=== PATIENT | female | born 1990 | race Caucasian/White ===

== ENCOUNTER 2019-12-24 01:29 | Emergency (ER) | payer BC ==
--- NOTE | 2019-12-24 02:04 | EDM.PDOC ---
ED HPI GENERAL MEDICAL PROBLEM - General Stated Complaint: SHARP SIDE PAIN Time Seen by Provider: 12/24/19 02:00 Source of Information: Reports: Patient History Limitations: Reports: No Limitations - History of Present Illness INITIAL COMMENTS - FREE TEXT/NARRATIVE: 29-year-old female who reports at approximately 11:30 PM to 12 midnight while at work she developed an acute onset of a sharp and ramping pain in her right mid back and then some cramping along her lower abdomen and pelvis that was associated with nausea but no vomiting. She reports the pain was a 6/10 at its worst but is a 3/10 now. It does seem to wax and wane somewhat. She has had no dysuria or noted any hematuria. The pain does seem to be somewhat worse when she is standing. Her no other exacerbating or alleviating factors. She has had no cough or trouble breathing. There were no antecedent problems. She has had no antecedent illnesses. There are no other associated signs or symptoms. There are no other modifying factors. Onset: Today (11:30 PM to 12 midnight), Sudden Duration: Improving Location: Reports: Abdomen, Back Quality: Reports: Sharp, Other (Cramping) Severity: Moderate Improves with: Reports: None Worsens with: Reports: Other (Standing) Context: Reports: Other (As above) Associated Symptoms: Reports: Nausea/Vomiting Treatments COMMUNICATIONS ADVISOR: Reports: Other (see below) (Nothing) back/ abdomen Pain Score (Numeric/FACES): 6 - Related Data Allergies Allergy/AdvReac Type Severity Reaction Status Date / Time albuterol Allergy Hives Verified 12/24/19 02:06 Home Meds: Home Meds Sulfamethoxazole/Trimethoprim [Bactrim Ds Tablet] 1 each PO BID 7 Days #14 tablet 12/24/19 [Rx] Past Medical History Genitourinary History: Reports: Renal Calculus - Past Surgical History HEENT Surgical History: Reports: Adenoidectomy, Tonsillectomy Social & Family History - Tobacco Use Smoking Status *Q: Current Every Day Smoker - Alcohol Use Alcohol Use History: No - Living Situation & Occupation Occupation: Employed (She works at [employer]) Social History Comment: She is here with her significant other. ED ROS GENERAL - Review of Systems Review Of Systems: See Below Constitutional: Reports: No Symptoms HEENT: Reports: No Symptoms Respiratory: Reports: No Symptoms Cardiovascular: Reports: No Symptoms GI/Abdominal: Reports: Abdominal Pain, Nausea : Reports: No Symptoms Musculoskeletal: Reports: Back Pain (Right mid back pain) Skin: Reports: No Symptoms Neurological: Reports: No Symptoms Hematologic/Lymphatic: Reports: No Symptoms Immunologic: Reports: No Symptoms ED EXAM, GENERAL - Physical Exam Exam: See Below Exam Limited By: No Limitations General Appearance: Alert, WD/WN, Mild Distress Eye Exam: Bilateral Eye: EOMI, Normal Inspection Ears: Normal External Exam, Hearing Grossly Normal Ear Exam: Bilateral Ear: Auricle Normal Nose: Normal Inspection, Normal Mucosa, No Blood. No: Other Throat/Mouth: Normal Inspection, Normal Oropharynx, Normal Voice, No Airway Compromise Head: Atraumatic, Normocephalic Neck: Normal Inspection, Supple, Non-Tender, Full Range of Motion Respiratory/Chest: No Respiratory Distress, Lungs Clear, Normal Breath Sounds, No Accessory Muscle Use, Chest Non-Tender Cardiovascular: Normal Peripheral Pulses, Regular Rate, Rhythm, No Murmur Peripheral Pulses: 2+: Radial (L), Radial (R) GI/Abdominal: Normal Bowel Sounds, Soft, Tender (Lower abdomen and pelvis with more the right than the left.) Back Exam: Full Range of Motion, CVA Tenderness (R) (Mild) Extremities: Normal Inspection, Normal Range of Motion, Non-Tender, Normal Capillary Refill. No: No Pedal Edema Neurological: Alert, Oriented, CN II-XII Intact, Normal Cognition, No Motor/ Sensory Deficits Skin Exam: Warm, Dry, Intact, Normal Color, No Rash Course - Vital Signs Last Recorded V/S: Last Vital Signs Temp 36.4 C 12/24/19 04:29 Pulse 77 12/24/19 04:29 Resp 14 12/24/19 04:29 BP 121/52 L 12/24/19 04:29 Pulse Ox 98 12/24/19 04:29 - Orders/Labs/Meds Orders: Active Orders 24 hr Category Date Time Status Abdomen Pelvis wo Cont [CT] Stat Exams 12/24/19 03:01 Taken CULTURE URINE [RM] Stat Lab 12/24/19 03:00 Ordered Sulfamethoxazole/Trimethoprim [Septra DS] Med 12/24/19 04:45 Once 1 tab PO ONETIME ONE Medication Orders Trimethoprim/Sulfamethoxazole (Septra Ds) 1 tab PO ONETIME ONE Stop: 12/24/19 04:46 Labs: Laboratory Tests 12/24/19 12/24/19 12/24/19 Range/Units 02:28 02:28 02:40 WBC 10.4 (4.5-12.0) X10-3/uL RBC 4.41 (3.23-5.20) x10(6)uL Hgb 14.2 (11.5-15.5) g/dL Hct 43.0 (30.0-51.3) % MCV 97.4 H (80-96) fL MCH 32.1 (27.7-33.6) pg MCHC 33.0 (32.2-35.4) g/dL RDW 11.9 (11.5-15.5) % Plt Count 326 (125-369) X10(3)uL MPV 8.1 (7.4-10.4) fL Neut % (Auto) 59.9 (46-82) % Lymph % (Auto) 31.8 (13-37) % Barron % (Auto) 4.1 (4-12) % Eos % (Auto) 3 (1.0-5.0) % Baso % (Auto) 1 (0-2) % Neut # (Auto) 6.2 (1.6-8.3) # Lymph # (Auto) 3.3 (0.6-5.0) # Barron # (Auto) 0.4 (0.0-1.3) # Eos # (Auto) 0.4 (0.0-0.8) # Baso # (Auto) 0.1 (0.0-0.2) # Sodium (135-145) mmol/L Potassium (3.5-5.3) mmol/L Chloride (100-110) mmol/L Carbon Dioxide (21-32) mmol/L BUN (7-18) mg/dL Creatinine (0.55-1.02) mg/dL Est Cr Clr Drug Dosing mL/min Estimated GFR (MDRD) (>60) BUN/Creatinine Ratio (9-20) Glucose (80-116) mg/dL Calcium (8.6-10.2) mg/dL Total Bilirubin (0.1-1.3) mg/dL AST (5-25) IU/L ALT (12-36) U/L Alkaline Phosphatase (56-112) IU/L Total Protein (6.0-8.0) g/dL Albumin (3.5-5.2) g/dL Globulin g/dL Albumin/Globulin Ratio Urine Color Brown (YELLOW) Urine Appearance Cloudy (CLEAR) Urine pH 5.0 (5.0-6.5) Ur Specific [place] 1.030 H (1.010-1.025) Urine Protein 100 H (NEGATIVE) mg/dL Urine Glucose (UA) Normal (NORMAL) mg/dL Urine Ketones 15 H (NEGATIVE) mg/dL Urine Occult Blood Large H (NEGATIVE) Urine Nitrite Positive H (NEGATIVE) Urine Bilirubin Small H (NEGATIVE) Urine Urobilinogen 1 H (NEGATIVE) mg/dL Ur Leukocyte Esterase Small H (NEGATIVE) Urine RBC >100 H (0-5) Urine WBC 5-10 H (0-5) Ur Squamous Epith Cells Moderate H (NS,R,O) Urine Bacteria Moderate H (NS) Urine Mucus Moderate H (NS) Urine HCG, Qual Negative (NEGATIVE) 12/24/19 Range/Units 02:40 WBC (4.5-12.0) X10-3/uL RBC (3.23-5.20) x10(6)uL Hgb (11.5-15.5) g/dL Hct (30.0-51.3) % MCV (80-96) fL MCH (27.7-33.6) pg MCHC (32.2-35.4) g/dL RDW (11.5-15.5) % Plt Count (125-369) X10(3)uL MPV (7.4-10.4) fL Neut % (Auto) (46-82) % Lymph % (Auto) (13-37) % Barron % (Auto) (4-12) % Eos % (Auto) (1.0-5.0) % Baso % (Auto) (0-2) % Neut # (Auto) (1.6-8.3) # Lymph # (Auto) (0.6-5.0) # Barron # (Auto) (0.0-1.3) # Eos # (Auto) (0.0-0.8) # Baso # (Auto) (0.0-0.2) # Sodium 143 (135-145) mmol/L Potassium 3.6 (3.5-5.3) mmol/L Chloride 104 (100-110) mmol/L Carbon Dioxide 28 (21-32) mmol/L BUN 18 (7-18) mg/dL Creatinine 0.8 (0.55-1.02) mg/dL Est Cr Clr Drug Dosing 100.90 mL/min Estimated GFR (MDRD) > 60 (>60) BUN/Creatinine Ratio 22.5 H (9-20) Glucose 86 (80-116) mg/dL Calcium 9.1 (8.6-10.2) mg/dL Total Bilirubin 0.6 (0.1-1.3) mg/dL AST 62 H (5-25) IU/L ALT 30 (12-36) U/L Alkaline Phosphatase 77 (56-112) IU/L Total Protein 8.0 (6.0-8.0) g/dL Albumin 4.4 (3.5-5.2) g/dL Globulin 3.6 g/dL Albumin/Globulin Ratio 1.2 Urine Color (YELLOW) Urine Appearance (CLEAR) Urine pH (5.0-6.5) Ur Specific [place] (1.010-1.025) Urine Protein (NEGATIVE) mg/dL Urine Glucose (UA) (NORMAL) mg/dL Urine Ketones (NEGATIVE) mg/dL Urine Occult Blood (NEGATIVE) Urine Nitrite (NEGATIVE) Urine Bilirubin (NEGATIVE) Urine Urobilinogen (NEGATIVE) mg/dL Ur Leukocyte Esterase (NEGATIVE) Urine RBC (0-5) Urine WBC (0-5) Ur Squamous Epith Cells (NS,R,O) Urine Bacteria (NS) Urine Mucus (NS) Urine HCG, Qual (NEGATIVE) Meds: Medications Generic Name Dose Route Start Last Admin Trade Name Freq PRN Reason Stop Dose Admin Trimethoprim/Sulfamethoxazole 1 tab 12/24/19 04:45 Septra Ds PO 12/24/19 04:46 ONETIME ONE - Radiology Interpretation Free Text/Narrative:: CT scan of abdomen and pelvis showed no evidence of obstructive uropathy or nephrolithiasis or ureterolithiasis. There is a small calcific density in the inferior bladder which could be a passed stone. - Re-Assessments/Exams Free Text/Narrative Re-Assessment/Exam: 12/24/19 04:45: Patient's pain in her right mid back and lower abdomen is essentially resolved. She feels much improved. She has remained vitally stable and fever in the emergency department. Her blood tests were reassuringly normal. Her urinalysis did have blood and some white cells with bacteria and a culture was sent. I suspect that she had a kidney stone the past and this is the cause of her abnormal urine but it is possible that she has a urinary tract infection and I am going to place her on Bactrim DS until culture comes back. I discussed this with the patient and with her significant other and they are in agreement with this plan. The patient is very much desirous of going home at this point. Departure - Departure Time of Disposition: 04:50 Disposition: Home, Self-Care 01 Condition: Good (Improved) Clinical Impression: Renal colic on right side Hematuria Qualifiers: Hematuria type: unspecified type Qualified Code(s): R31.9 - Hematuria, unspecified - Discharge Information Prescriptions: Sulfamethoxazole/Trimethoprim [Bactrim Ds Tablet] 1 each PO BID 7 Days #14 tablet Instructions: Renal Colic, [id number] Referrals: PCP,None [Primary Care Provider] - Additional Instructions: You appear to have had a kidney stone that you passed. You also could have a urinary tract infection. I am placing you on an antibiotic to treat for this possibility (Bactrim DS). You need to increase your fluid intake. You may take ibuprofen and Tylenol as needed for your pain. You need to follow-up with your primary doctor about the blood in your urine. Back to the emergency department for marked increase in pain, fever, unrelenting vomiting or any other concerning sign or symptom. Sepsis Event Note - Focused Exam Vital Signs: Vital Signs Temp Pulse Resp BP Pulse Ox 12/24/19 04:29 36.4 C 77 14 121/52 L 98 12/24/19 02:15 36.5 C 77 22 H 117/59 L 100 Date Exam was Performed: 12/24/19 Time Exam was Performed: 04:46 - My Orders Last 24 Hours: My Active Orders 12/24/19 03:00 CULTURE URINE [RM] Stat 12/24/19 03:01 Abdomen Pelvis wo Cont [CT] Stat 12/24/19 04:45 Sulfamethoxazole/Trimethoprim [Septra DS] 1 tab PO ONETIME ONE - Assessment/Plan Last 24 Hours: My Active Orders 12/24/19 03:00 CULTURE URINE [RM] Stat 12/24/19 03:01 Abdomen Pelvis wo Cont [CT] Stat 12/24/19 04:45 Sulfamethoxazole/Trimethoprim [Septra DS] 1 tab PO ONETIME ONE
[2019-12-24] MEDS ORDERED: Sulfamethoxazole/Trimethoprim 800-160 MG Tab PO ONE (04:45)
== END 2019-12-24 05:00 | disposition home or self-care (01) ==
LOC: FB.ED 01:29
DX: N23 Unspecified renal colic (principal); R31.9 Hematuria, unspecified; F17.200 Nicotine dependence, unspecified, uncomplicated; Z88.8 Allergy status to other drugs, medicaments and biological substances
CPT/HCPCS: 36415; 74176; 80053; 81001; 81025; 85025; 87086; 99284; A9270

== ENCOUNTER 2021-08-28 16:33 | Observation (INO) | payer BC, OTHER ==
[2021-08-28] MEDS ORDERED: Albuterol/Ipratropium 3.0-0.5 MG/3 ML Neb Soln NEB PRN ×2 (17:53→17:55)
[2021-08-28] MEDS ORDERED: Non-Formulary Medication 1 Each (Ibuprofen [Ibuprofen] 200 MG Capsule) PO PRN (17:56)
[2021-08-28] MEDS ORDERED: predniSONE 20 MG Tab PO ONE (17:59)
[2021-08-28] MEDS ORDERED: cefTRIAXone 1 GM in Sodium Chloride 0.9% 50 ML IV SCH (18:00)
[2021-08-28] MEDS ORDERED: Albuterol/Ipratropium 3.0-0.5 MG/3 ML Neb Soln NEB SCH (18:00)
[2021-08-28] MEDS ORDERED: Acetaminophen 325 MG Tab PO PRN (18:01)
[2021-08-28] MEDS ORDERED: Morphine 2 MG/ML SYRINGE IVPUSH PRN (18:02)
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
[2021-08-28] MEDS ORDERED: Ibuprofen 400 MG Tab PO PRN (18:18)
[2021-08-28] MEDS ORDERED: Sodium Chloride 0.9% 10 ML Syringe FLUSH PRN (18:20)
[2021-08-28] MEDS: Azithromycin 500 MG in Sodium Chloride 0.9% 250 ML IV SCH (19:10)
[2021-08-28] MEDS: Albuterol/Ipratropium 3.0-0.5 MG/3 ML Neb Soln NEB SCH (22:00)
[2021-08-29] MEDS: Albuterol/Ipratropium 3.0-0.5 MG/3 ML Neb Soln NEB SCH ×4 (02:01→13:58)
[2021-08-29] MEDS ORDERED: Pantoprazole 40 MG Tab.CR PO SCH (06:00)
[2021-08-29] MEDS ORDERED: predniSONE 20 MG Tab PO SCH ×2 (08:00)
[2021-08-29] MEDS ORDERED: cefTRIAXone 1 GM Vial IVPUSH SCH ×2 (08:00→18:00)
--- NOTE | 2021-08-29 09:17 | PCM.PN ---
- General Info Date of Service: 08/29/21 Subjective Update: Randi is breathing better, still a little tight, and cough is persistent. No fever Functional Status: Reports: Pain Controlled - Review of Systems HEENT: Reports: No Symptoms Pulmonary: Reports: No Symptoms Cardiovascular: Reports: No Symptoms Gastrointestinal: Reports: No Symptoms - Patient Data Vitals - Most Recent: Last Vital Signs Temp 97.2 F 08/29/21 09:12 Pulse 87 08/29/21 09:12 Resp 18 08/29/21 06:00 BP 138/61 08/29/21 06:00 Pulse Ox 90 L 08/29/21 06:00 Weight - Most Recent: 112.718 kg I&O - Last 24 Hours: Intake & Output 08/28/21 08/29/21 08/29/21 22:59 06:59 14:59 Intake Total 300 Balance 300 Lab Results Last 24 Hours: Laboratory Results - last 24 hr 08/28/21 08/29/21 08/29/21 Range/Units 20:30 06:30 06:30 WBC 4.6 (3.0-10.3) x10-3/uL RBC 4.00 (3.60-5.20) x10(6)uL Hgb 13.1 (11.4-15.5) g/dL Hct 39.1 (34.2-48.2) % MCV 97.7 (76.7-100.5) fL MCH 32.8 (23.9-33.9) pg MCHC 33.5 (31.9-34.8) g/dL RDW 12.4 (12.3-16.5) % Plt Count 256 (151-488) x10(3)uL MPV 8.1 (7.1-12.4) fL Neut % (Auto) 73.6 (30.8-76.2) % Lymph % (Auto) 19.0 (18.4-52.1) % [place] % (Auto) 6.6 (4.4-15.7) % Eos % (Auto) 0.1 L (0.6-8.1) % Baso % (Auto) 0.7 (0.2-1.5) % Neut # (Auto) 3.4 (1.5-6.3) x10-3/uL Lymph # (Auto) 0.9 L (1.0-4.4) x10-3/uL [place] # (Auto) 0.3 (0.3-1.0) x10-3/uL Eos # (Auto) 0.0 (0.0-0.8) x10-3/uL Baso # (Auto) 0.0 (0.0-0.1) x10-3/uL Sodium 144 (135-145) mmol/L Potassium 3.6 (3.5-5.3) mmol/L Chloride 106 (100-110) mmol/L Carbon Dioxide 24 (21-32) mmol/L BUN 9 (7-18) mg/dL Creatinine 0.7 (0.55-1.02) mg/dL Est Cr Clr Drug Dosing 113.24 mL/min Estimated GFR (MDRD) > 60 (>60) BUN/Creatinine Ratio 12.9 (9-20) Glucose 119 H (80-116) mg/dL Calcium 8.5 L (8.6-10.2) mg/dL SARS-CoV-2 RNA (SHIKHA) Negative (NEGATIVE) Med Orders - Current: Current Medications Acetaminophen (Acetaminophen 325 Mg Tab) 650 mg PO Q4H PRN PRN Reason: Pain (moderate 4-6) Last Admin: 08/28/21 18:37 Dose: 650 mg Documented by: Albuterol/Ipratropium (Albuterol/Ipratropium 3.0-0.5 Mg/3 Ml Neb Soln) 3 ml NEB Q2H PRN PRN Reason: Shortness of Breath Albuterol/Ipratropium (Albuterol/Ipratropium 3.0-0.5 Mg/3 Ml Neb Soln) 3 ml NEB Q4H [facility] Last Admin: 08/29/21 06:03 Dose: 3 ml Documented by: Ceftriaxone Sodium (Ceftriaxone 1 Gm Vial) 1 gm IVPUSH Q24H AMANDA Azithromycin 500 mg/ Sodium (Chloride) 250 mls @ 250 mls/hr IV Q24H [facility] Last Admin: 08/28/21 19:10 Dose: 250 mls/hr Documented by: Ibuprofen (Ibuprofen 400 Mg Tab) 400 mg PO Q4H PRN PRN Reason: Pain (mild 1-3) Morphine Sulfate (Morphine 2 Mg/Ml Syringe) 1 mg IVPUSH Q2H PRN PRN Reason: Pain (severe 7-10) Pantoprazole Sodium (Pantoprazole 40 Mg Tab.Cr) 40 mg PO 0600 [facility] Last Admin: 08/29/21 06:02 Dose: 40 mg Documented by: Prednisone (Prednisone 20 Mg Tab) 40 mg PO WITHBREAKFAST AMANDA Sodium Chloride (Sodium Chloride 0.9% 10 Ml Syringe) 10 ml FLUSH ASDIRECTED PRN PRN Reason: Keep Vein Open Discontinued Medications Albuterol/Ipratropium (Albuterol/Ipratropium 3.0-0.5 Mg/3 Ml Neb Soln) 3 ml NEB Q4H PRN PRN Reason: Shortness of Breath Albuterol/Ipratropium (Albuterol/Ipratropium 3.0-0.5 Mg/3 Ml Neb Soln) 3 ml NEB Q4H [facility] Last Admin: 08/28/21 21:29 Dose: Not Given Documented by: Ceftriaxone Sodium 1 gm/ (Sodium Chloride) 50 mls @ 200 mls/hr IV Q24H [facility] Last Admin: 08/28/21 18:55 Dose: 200 mls/hr Documented by: Non-Formulary Medication (Ibuprofen [Ibuprofen]) 400 mg PO ASDIRECTED PRN PRN Reason: Pain Prednisone (Prednisone 20 Mg Tab) 40 mg PO WITHBREAKFAST [facility] Prednisone (Prednisone 20 Mg Tab) 40 mg PO NOW ONE Stop: 08/28/21 18:00 Last Admin: 08/28/21 18:37 Dose: 40 mg Documented by: - Exam General: Alert, Oriented HEENT: Pupils Equal Neck: Supple Lungs: Rales, Rhonchi Cardiovascular: Regular Rate GI/Abdominal Exam: Normal Bowel Sounds - Patient Data Lab Results Last 24 hrs: Laboratory Results - last 24 hr 08/28/21 08/29/21 08/29/21 Range/Units 20:30 06:30 06:30 WBC 4.6 (3.0-10.3) x10-3/uL RBC 4.00 (3.60-5.20) x10(6)uL Hgb 13.1 (11.4-15.5) g/dL Hct 39.1 (34.2-48.2) % MCV 97.7 (76.7-100.5) fL MCH 32.8 (23.9-33.9) pg MCHC 33.5 (31.9-34.8) g/dL RDW 12.4 (12.3-16.5) % Plt Count 256 (151-488) x10(3)uL MPV 8.1 (7.1-12.4) fL Neut % (Auto) 73.6 (30.8-76.2) % Lymph % (Auto) 19.0 (18.4-52.1) % [place] % (Auto) 6.6 (4.4-15.7) % Eos % (Auto) 0.1 L (0.6-8.1) % Baso % (Auto) 0.7 (0.2-1.5) % Neut # (Auto) 3.4 (1.5-6.3) x10-3/uL Lymph # (Auto) 0.9 L (1.0-4.4) x10-3/uL [place] # (Auto) 0.3 (0.3-1.0) x10-3/uL Eos # (Auto) 0.0 (0.0-0.8) x10-3/uL Baso # (Auto) 0.0 (0.0-0.1) x10-3/uL Sodium 144 (135-145) mmol/L Potassium 3.6 (3.5-5.3) mmol/L Chloride 106 (100-110) mmol/L Carbon Dioxide 24 (21-32) mmol/L BUN 9 (7-18) mg/dL Creatinine 0.7 (0.55-1.02) mg/dL Est Cr Clr Drug Dosing 113.24 mL/min Estimated GFR (MDRD) > 60 (>60) BUN/Creatinine Ratio 12.9 (9-20) Glucose 119 H (80-116) mg/dL Calcium 8.5 L (8.6-10.2) mg/dL SARS-CoV-2 RNA (SHIKHA) Negative (NEGATIVE) Result Diagrams: 08/29/21 06:30 08/29/21 06:30 Sepsis Event Note - Evaluation Sepsis Screening Result: No Definite Risk - Focused Exam Vital Signs: Vital Signs Temp Pulse Resp BP Pulse Ox 08/29/21 09:12 97.2 F 87 08/29/21 06:00 98.1 F 86 18 138/61 90 L 10/01/21 02:00 97.1 F 78 18 128/79 90 L - Problem List & Annotations (1) Asthma exacerbation SNOMED Code(s): 235233071 Code(s): J45.901 - UNSPECIFIED ASTHMA WITH (ACUTE) EXACERBATION Status: Acute Current Visit: Yes (2) Pneumonia SNOMED Code(s): 338349077 Code(s): J18.9 - PNEUMONIA, UNSPECIFIED ORGANISM Status: Acute Current Visit: Yes (3) Engages in vaping SNOMED Code(s): 577617347, 214522734 Code(s): Z72.89 - OTHER PROBLEMS RELATED TO LIFESTYLE Status: Acute Current Visit: Yes - Problem List Review Problem List Initiated/Reviewed/Updated: Yes - Plan Plan:: Keep for 1 more day of IV steroid and antibiotic therapy. I S. Discharge tomorrow.
[2021-08-29] MEDS: Azithromycin 500 MG in Sodium Chloride 0.9% 250 ML IV SCH (15:55)
--- NOTE | 2021-08-30 00:37 | DISCH ---
DISCHARGE DATE: 08/29/2021 REASON FOR ADMISSION: 1. Asthma exacerbation. 2. Pneumonia. 3. Vaping HISTORY OF PRESENT ILLNESS: This is a 31-year-old female, who was admitted with shortness of breath, cough, wheezing, found to have pneumonia. She has a history of asthma. She was treated with IV Rocephin and given oral prednisone and nebulized therapy. She is ready to go home today. She will be discharged on azithromycin 500 mg daily for 3 days and 40 mg of prednisone daily for 5 days. She should see her physician in 1 week. I spent 35 minutes in the discharge. /[id number] CHARISSE/SHERMAN LAWSON
== END 2021-08-29 17:00 | disposition home or self-care (01) ==
LOC: FB.MS 16:33
PROVIDERS: ADMIT Student in an Organized Health Care Education/Training Program; ATTEND Student in an Organized Health Care Education/Training Program
DX: J45.901 Unspecified asthma with (acute) exacerbation (principal); J18.9 Pneumonia, unspecified organism; Z79.899 Other long term (current) drug therapy; K21.9 Gastro-esophageal reflux disease without esophagitis; E66.9 Obesity, unspecified; Z98.890 Other specified postprocedural states; Z87.891 Personal history of nicotine dependence; Z20.822 Contact with and (suspected) exposure to COVID-19
CPT/HCPCS: 36415; 80048; 85025; 90686; 94150; 94640; 96365; 96375; 96376; A9270-GY; G0008; G0378; G0379; J0456; J0696; J7050; J7512; J7620-GY; U0002

== ENCOUNTER 2022-10-05 19:46 | Emergency (ER) | payer OTHER ==
[2022-10-05] MEDS ORDERED: Albuterol 8 GM Inhaler INH ONE (19:47)
[2022-10-05 21:24] LABS: CORONAVIRUS COVID-19 NAA POSITIVE (NEGATIVE)
== END 2022-10-05 21:50 | disposition home or self-care (01) ==
LOC: FB.ED 19:46
DX: U07.1 COVID-19 (principal); J45.909 Unspecified asthma, uncomplicated; E66.9 Obesity, unspecified; Z68.41 Body mass index [BMI] 40.0-44.9, adult; Z72.0 Tobacco use
CPT/HCPCS: 0241U; 36415; 81001; 85025; 85379; 86140; 99284; A9270

== ENCOUNTER 2023-05-18 13:03 | Emergency (ER) | payer OTHER ==
[2023-05-18] MEDS ORDERED: Albuterol/Ipratropium 3.0-0.5 MG/3 ML Neb Soln NEB ONE ×2 (13:44→14:12)
== END 2023-05-18 15:33 | disposition home or self-care (01) ==
LOC: FB.ED 13:03
DX: J45.901 Unspecified asthma with (acute) exacerbation (principal); L50.9 Urticaria, unspecified; E66.9 Obesity, unspecified; Z86.16 Personal history of COVID-19; Z79.51 Long term (current) use of inhaled steroids; Z68.41 Body mass index [BMI] 40.0-44.9, adult
CPT/HCPCS: 93005; 99284; J7620